=== PATIENT | male | born 1970 | race Hispanic/Latino ===

== ENCOUNTER 2019-01-27 14:28 | Outpatient (CLI) | payer OTHER, SELFPAY ==
[2019-01-27] VITALS (7 sets, daily range): BP systolic 104–129; BP diastolic 65–85; PULSE 47–60; RESP 16; TEMP 36.6; O2SAT 97–100
--- NOTE | 2019-01-27 14:33 | DI.RAD.S_ITS ---
PROCEDURE: PAIN L INTERLAMINAR/CAUDAL INJ INDICATIONS: INTERVERTEBRAL DISC DISPLACEMENT FINDINGS: Fluoroscopic spot filming was performed to verify placement of spinal needles at the L5-S1 dorsal interlaminar notch level(s), as labeled on the films. Appropriate location(s) of the needle tip(s) was confirmed by injection of iodinated contrast. IMPRESSION: L5-S1 left paramedian dorsal interlaminar notch injection for epidural steroid. Dictated by: Ty Brandon M.D. on 01/27/2019 at 15:34 Approved by: Ty Brandon M.D. on 01/27/2019 at 15:35
[2019-01-27] MEDS: DEXAMETHASONE 10 MG/ML VIAL 20 MG INJ (15:00)
[2019-01-27] MEDS: MIDAZOLAM 5 MG/5 ML VIAL IV (15:00)
[2019-01-27] MEDS: BUPIVACAINE 0.25% (PF) VIAL 2 ML INJ (15:00)
[2019-01-27] MEDS: BETAMETHASONE 30 MG/5 ML MDV 6 MG INJ (15:00)
[2019-01-27] MEDS: fentaNYL 100 MCG/2 ML INJ 50 MCG IV (15:00)
[2019-01-27] MEDS: IOPAMIDOL 15 ML VIAL 3 ML INJ (15:00)
--- NOTE | 2019-01-27 15:08 | PC.NURSE ---
pt tolerated procedure well. Able to get off table with standby assist. Transferred pt via wheelchair to pre procedure room for continued monitoring with Carolin RHOADES.
--- NOTE | 2019-01-27 15:12 | PM.PROC.1 ---
Procedures Date/Time Date of procedure: 01/27/19 Time of procedure: 15:12 General Procedure description: PROVIDER: Sidney Tyler DO Operative Note PREOP DIAGNOSIS 1. HNP WITH RADICULAR FEATURES, 2. MULTILEVEL CENTRAL STENOSIS, POST OP DIAGNOSIS 1. HNP WITH RADICULAR FEATURES, 2. MULTILEVEL CENTRAL STENOSIS, PROCEDURES 1. FLUORSCOPICALLY GUIDED CONTRAST CONTROLLED INTERLAMINAR EPIDURAL STEROID INJECTION - L5/S1 PHYSICIAN: Sidney Tyler DO INDICATIONS Thang is referred by Dr. Andrews for treatment of HNP with Foraminal Stenosis L>R LE symptoms. FINDINGS Multilevel Central Spinal Stenosis with Nerve Root Compression DESCRIPTION OF PROCEDURE Fluoroscopically guided, contrast-controlled L5/S1 translaminar epidural steroid injection. Following denial of allergy and review of potential side effects and complications, including, but not necessarily limited to, infection, allergic reaction, local tissue breakdown, temporary as well as permanent nerve injury, paralysis, stroke and possible , the patient indicated that the patient understood and agreed to proceed. An informed consent document was signed by the patient, witnessed by a nurse, and placed in the patient's chart. Additionally, other treatment options including modalities, medications, and physical therapy were reviewed with the patient. After review of previous anaesthesic history and IV conscious sedation the patient was deemed safe to proceed with todays procedure with IV conscious sedation as ASA class II designation. Safety time-out was performed to confirm patient ID, procedure to be performed and site of procedure. IV sedation was accomplished with a combination of 3mg of Versed and 50mcg of Fentanyl administered by the RN after DO order, titrated to patient comfort during the course of the procedure while the patient remained responsive to all verbal commands. In the prone position, following sterile prep and drape of the lumbar region, the L5/S1 translaminar space was identified fluoroscopically. The skin was anesthetized via a 25-gauge, 1.5-inch needle with 1% lidocaine solution. At this point, a 22-gauge short bevel spinal needle was atraumatically introduced and advanced under fluoroscopic guidance into the region of the L5/S1 translaminar space. Depth was confirmed on lateral view. Radiological data, including multiple fluoroscopic views of the lumbar spine, reveal a spinal needle at the L5/S1 translaminar space. Lateral views then show placement of the needle in the epidural space. Subsequent views show contrast material flowing superiorly and inferiorly in the epidural space. No vascular or intrathecal uptake is observed. At this point, using loss of resistance technique with saline and air, the epidural space was entered. This was confirmed following negative aspiration with injection of approximately 1.5 cc of Isovue 200, showing excellent epidural flow without vascular or intrathecal uptake. At this point, 1 cc of 1% lidocaine solution combined with 3cc or 20mg of dexamethasone and 50mcg of Fentanyl was injected without incident. The patent tolerated the procedure without signs of symptoms of complications prior to transfer to the recovery area for further monitoring. The patient was then transferred to the recovery area where they were observed for an appropriate period of time after the injection. The patient reported a VAS score of 6 prior to the procedure and a post-procedure VAS of 0. Total Fluoroscopy Time: 11.8 seconds Total Conscious Sedation Time: 24min POST OP INSTRUCTIONS The patient was provided a Pain Log to continue to record their response to the target-specific procedure prior to follow-up visit with their referring physician. Additionally, specific post-injection care instructions and a contact number to our office were provided if concerns arise regarding possible complications associated with the procedure are suspected. Sidney Tyler DO
--- NOTE | 2019-01-27 15:15 | PC.NURSE ---
ACCEPTED CARE OF PT IN STABLE CONDITION IN POST PROC AREA.
== END 2019-01-27 15:36 | disposition home or self-care (01) ==
LOC: RAD 14:32
PROVIDERS: PCP Family Medicine; Visit Provider Physical Medicine & Rehabilitation
DX: M51.17 Intervertebral disc disorders with radiculopathy, lumbosacral region (principal); M48.07 Spinal stenosis, lumbosacral region
CPT/HCPCS: 62323; 99152; J0702; J1100; J2250; J3010